=== PATIENT | male | born 1940 | race Caucasian/White ===

== ENCOUNTER 2020-12-31 07:59 | Day surgery (SDC) | payer MEDICARE, BC, SELFPAY ==
[2020-12-31] VITALS (14 sets, daily range): BP systolic 108–172; BP diastolic 44–91; PULSE 57–67; RESP 16–20; TEMP 36.8; O2SAT 92–97; BMI 28.7
--- NOTE | 2020-12-31 07:05 | IR_ITS ---
APPROVED REPORT Patient Location: Outpatient Financial Administration Officer: BRIGITTE Andujar RT (R) PROCEDURES Left heart catheterization Left ventriculogram Selective coronary angiogram Drug-eluting stent deployment to the circumflex artery INDICATION Angina pectoris, Known coronary artery disease, Abnormal Myoview Informed consent was obtained prior to the procedure. COMPLICATIONS NONE Estimated Blood Loss: LESS THAN 10 ML TECHNIQUE One percent lidocaine used to anesthetize the right anterior aspect of the wrist. The right radial artery was accessed via the Seldinger technique. A 6 [place] sheath was placed in the right radial artery. 2.5 mg of verapamil, 800 mcg of nitroglycerin, 1mg Lidocaine and 5000 U Heparin were given through the arterial sheath. The trap catheter was also used to perform left heart catheterization, left ventriculogram and selective coronary angiogram. At the end of the diagnostic angiogram therapeutic heparin was administered giving a therapeutic ACT and and I Camille left guide catheter was placed in the left main artery. A wire was placed into the LAD and an additional BMW wire was placed into the circumflex artery. A 2 mm x 12 mm resolute Ped[place] stent was then deployed in the obtuse marginal artery at 18 shaheed reducing the 90% stenosis to 0%. LETICIA-3 flow was present before and after the procedure. At the end of the procedure the apparatus was removed the sheath was removed good hemostasis was achieved with a TR banding patient was transferred to the postop putting her stable edition ANGIOGRAPHIC RESULTS The left main artery Short and normal The left anterior descending artery Has proximal 10 to 20% stenosis followed by mid vessel stents which are widely patent free of in-stent restenosis with excellent proximal distal transitioning. The distal LAD has an eccentric 50% stenosis as it wraps the apex. The first diagonal artery is small and has an ostial proximal 80 to 90% stenosis followed by an additional 50% stenosis The circumflex artery Is a nondominant vessel giving rise to 3 obtuse marginal arteries. The first obtuse marginal artery has 30% stenosis while the second has mild 10 to 20% stenosis. The third obtuse marginal artery which is moderate in size has a proximal concentric 90% stenosis The right coronary artery Is a dominant vessel and has stents in the proximal through mid segment. Proximally the stents have 30% concentric in-stent restenosis and are widely patent in the mid and distal segment with excellent distal transitioning into the [place] vessel. The remaining vessel has mild 10% plaque The [place] ventriculogram reveals Normal 65% The left ventricular end-diastolic pressure 15 to 20 mmHg IMPRESSION Coronary disease as described above Successful stenting of the circumflex artery severe disease reduced to 0% with 1 drug-eluting stent Normal ejection fraction Mildly elevated LVEDP likely consistent with some degree of diastolic dysfunction PLAN 1. Dual antiplatelet therapy 2. Cardiac rehabilitation 3. Avoidance of tobacco products 4. Risk factor modification 5. LDL less than 55 6. If patient continues to experience dyspnea following revascularization of the circumflex artery I would recommend treatment of diastolic dysfunction Electronically signed by : Derek Phipps, 12/31/2020 11:28:15
[2020-12-31 08:50] LABS: Anion Gap 7.3 mEq/L (5-15); Blood Urea Nitrogen 18 mg/dl (9-20); Calcium 9.3 mg/dl (8.4-10.2); Carbon Dioxide 29 mmol/L (22.0-30.0); Chloride 107 mmol/L (98-107); Creatinine Clearance Estimated 63 mL/min (50-200); Estimated Glomerular Filt Rate 58 ml/min (>60); GFR (African American) 70 ML/MIN (>60); Glucose 109 mg/dl (74-100); Potassium 4.3 mmoL/L (3.5-5.1); Sodium 139 mmol/L (136-145)
[2020-12-31 08:57] LABS: Basophils # 0.1 K/mm3 (0-0.2); Basophils % 0.9 % (0.1-2.0); Eosinophils # 0.6 K/mm3 (0.0-0.4); Eosinophils % 5.6 % (0.1-12.0); Hematocrit 42.4 % (42.0-52.0); Hemoglobin 13.9 g/dL (14.1-18.0); Lymphocytes # 1.8 K/mm3 (0.7-4.5); Lymphocytes % 17.7 % (10-50); Mean Corpuscular HGB Conc 32.8 g/dL (31.8-35.4); Mean Corpuscular Hemoglobin 28.1 pg (27.0-31.2); Mean Corpuscular Volume 85.8 fl (80-94); Monocytes # 0.6 K/mm3 (0.1-1.0); Monocytes % 5.5 % (1.7-9.3); Neutrophils # 7.3 K/mm3 (1.8-7.8); Neutrophils % 70.4 % (37.0-80.0); Platelet Count 242 K/mm3 (142-424); Red Blood Count 4.95 M/mm3 (4.60-6.20); Red Cell Distribution Width 12.6 % (11.5-17.5); White Blood Count 10.4 K/mm3 (4.8-10.8)
[2020-12-31 12:22] LABS: CATHL Activated Clotting Time 316 SEC (74-125)
--- NOTE | 2020-12-31 13:08 | [facility].PHACLD ---
Bola Saraviapton has received discharge medication counseling on the following medications: CARVEDILOL LISINOPRIL PLAVIX ASPIRIN PRAVASTATIN PATIENT TAKES ALL OF THESE MEDICATIONS AT HOME ALREADY. PATIENT HAD NO QUESTIONS ABOUT ANY OF THESE MEDICATIONS AT THIS TIME. -TITI PYLE, TRESSAD
== END 2020-12-31 13:14 | disposition home or self-care (01) ==
LOC: CATHLAB 08:02
PROVIDERS: PCP Physician Assistant Medical; Visit Provider Internal Medicine
DX: I10 Essential (primary) hypertension (principal); I11.9 Hypertensive heart disease without heart failure; R94.30 Abnormal result of cardiovascular function study, unspecified; I25.118 Atherosclerotic heart disease of native coronary artery with other forms of angina pectoris; Z79.899 Other long term (current) drug therapy; Z87.891 Personal history of nicotine dependence; E78.5 Hyperlipidemia, unspecified; T82.855A Stenosis of coronary artery stent, initial encounter; Y83.1 Surgical operation with implant of artificial internal device as the cause of abnormal reaction of the patient, or of later complication, without mention of misadventure at the time of the procedure
CPT/HCPCS: 80048; 85025; 85347; 92928; 93458; 99152; 99153; C1725; C1769; C1876; C9600; J1644; Q9967; U0003